=== PATIENT | female | born 1995 | race Caucasian/White ===

== ENCOUNTER 2021-11-26 20:49 | Inpatient (IN) ==
[2021-11-26] MEDS ORDERED: ONDANSETRON 4 MG/2 ML VIAL IV PRN (21:49)
[2021-11-26] MEDS ORDERED: BUTORPHANOL 2 MG/ML VIAL IV PRN (21:49)
[2021-11-26] MEDS ORDERED: MEPERIDINE 50 MG/1 ML VIAL IV PRN (21:49)
[2021-11-26] MEDS ORDERED: LACTATED RINGERS 1,000 ML IV SCH (22:00)
[2021-11-26 22:17] LABS: Basophils % 0.2 % (0.0-0.8); Eosinophils # 0.1 10*3/uL (0.0-0.87); Eosinophils % 1.5 % (0.00-10.9); Hematocrit 31.9 VOL% (35.7-47.0); Hemoglobin 10.1 GM/DL (12.0-16.0); Immature Granulocytes % 0.5 %; Immature Granulocytes Absolute 0.05 #; Lymphocytes # 2.1 10*3/uL (1.4-4.0); Lymphocytes % 23.3 % (21.3-54.2); Mean Corpuscular HGB Conc 31.7 GM/DL (32-36); Mean Corpuscular Volume 76.9 FL (87-102); Neutrophils % 66.5 % (38.7-73.9); Platelet Count 210 T/CUMM (130-400); Red Blood Count 4.15 MC/CUMM (3.8-5.5); Red Cell Distribution Width 15.6 % (9.3-17.3); White Blood Count 9.1 T/CUMM (4-12)
[2021-11-26 22:31] LABS: Alanine Aminotransferase 17 U/L (13-56); Albumin 2.4 G/DL (3.4-5.0); Alkaline Phosphatase 114 U/L (45-117); Aspartate Amino Transferase 18 U/L (0-37); Bilirubin,Total < 0.39 MG/DL (0.20-1.00); Blood Urea Nitrogen 10 MG/DL (7-18); Calcium 8.5 MG/DL (8.5-10.1); Carbon Dioxide 21 MMOL/L (21-32); Estimated Glom Filtration Rate 172 ML/MIN; Glucose 91 MG/DL (74-106); Osmolality,Calculated 273.7 MOS/KG (273-304); Potassium 3.5 MMOL/L (3.5-5.1); Sodium 138 MMOL/L (136-145); Total Protein 6.8 G/DL (6.4-8.2)
[2021-11-27] MEDS ORDERED: OXYTOCIN/LR 20 UNIT/1,000 ML BAG IV SCH (06:00)
[2021-11-27] MEDS: LEVOTHYROXINE 100 MCG TABLET PO SCH (06:05)
[2021-11-27] MEDS ORDERED: CITRIC ACID/SODIUM CITRATE 30 ML UDCUP PO ONE (07:24)
[2021-11-27] MEDS ORDERED: ePHEDrine 50 MG/ML VIAL IV PRN (07:24)
[2021-11-27] MEDS ORDERED: ONDANSETRON 4 MG/2 ML VIAL IV ONE (07:24)
[2021-11-27] MEDS ORDERED: NALOXONE 0.4 MG/ML VIAL IV PRN (07:24)
[2021-11-27] MEDS ORDERED: diphenhydrAMINE 50 MG/1 ML VIAL IV PRN ×2 (07:24)
[2021-11-27] MEDS ORDERED: PROMETHAZINE 25 MG/1 ML VIAL IM ONE (07:24)
[2021-11-27] MEDS ORDERED: hydrOXYzine HCL 25 MG/1 ML VIAL IM PRN (07:24)
[2021-11-27] MEDS ORDERED: FAMOTIDINE 20 MG/2 ML VIAL IV ONE (07:24)
[2021-11-27] MEDS ORDERED: fentaNYL 2 MCG/ROPIV 0.2% EPID 100 ML EPIDURAL SCH (07:30)
[2021-11-27] MEDS ORDERED: LACTATED RINGERS 1,000 ML IV SCH (07:30)
[2021-11-27] MEDS ORDERED: TRANEXAMIC ACID 1,000 MG/10 ML VIAL ONE (10:20)
[2021-11-27] MEDS ORDERED: miSOPROStoL 200 MCG TABLET ONE (10:20)
[2021-11-27] MEDS ORDERED: SODIUM CHLORIDE 0.9% 0 ML IV ONE (10:20)
[2021-11-27] MEDS ORDERED: CARBOPROST TROMETHAMINE 250 MCG/ML AMP IM ONE (10:21)
[2021-11-27] MEDS ORDERED: METHYLERGONOVINE 0.2 MG/1 ML AMP ONE (10:21)
[2021-11-27 11:31] LABS: Cord Venous Blood HCO3 22.1 MMOL/L; Cord Venous Blood PCO2 44.7 MMHG; Cord Venous Blood PO2 29.5
[2021-11-27] MEDS ORDERED: MEASLES/MUMPS/RUBELLA VACCINE 0.5 ML VIAL SUBCUT ONE (13:31)
[2021-11-27] MEDS ORDERED: DIPH/TET/ACEL PERT BOOSTER VACCINE 0.5 ML VIAL IM ONE (13:31)
[2021-11-27] MEDS ORDERED: BENZOCAINE 20%/MENTHOL 0.5% SPRAY 56 GM CAN TOP PRN (13:31)
[2021-11-27] MEDS ORDERED: LANOLIN 50% CREAM 0.3 OZ TUBE TOP PRN (13:31)
[2021-11-27] MEDS ORDERED: HYDROCORTISONE 2.5% RECTAL CREAM 30 GM TUBE TOP PRN (13:31)
[2021-11-27] MEDS ORDERED: ACETAMINOPHEN 325 MG TABLET PO PRN (13:31)
[2021-11-27] MEDS ORDERED: WITCH HAZEL PADS 100/JAR TOP PRN (13:31)
[2021-11-27] MEDS ORDERED: IBUPROFEN 800 MG TABLET PO PRN (13:31)
[2021-11-27] MEDS ORDERED: RHO(D) IMMUNE GLOBULIN 300 MCG SYRINGE IM ONE (13:31)
[2021-11-27] MEDS ORDERED: BISACODYL 10 MG SUPP RECTAL PRN (13:31)
[2021-11-27] MEDS ORDERED: ONDANSETRON 4 MG/2 ML VIAL IV PRN (13:31)
[2021-11-27] MEDS ORDERED: OXYTOCIN/LR 20 UNIT/1,000 ML BAG IV ONE (13:31)
[2021-11-27] MEDS ORDERED: oxyCODONE/ACETAMINOPHEN 5-325 MG TABLET PO PRN ×2 (13:31)
[2021-11-27] MEDS: DOCUSATE SODIUM 100 MG CAPSULE PO SCH (21:19)
[2021-11-28 05:45] LABS: Basophils % 0.3 % (0.0-0.8); Eosinophils # 0.2 10*3/uL (0.0-0.87); Eosinophils % 2.1 % (0.00-10.9); Hematocrit 32.3 VOL% (35.7-47.0); Hemoglobin 10.2 GM/DL (12.0-16.0); Immature Granulocytes % 0.5 %; Immature Granulocytes Absolute 0.05 #; Lymphocytes # 2.7 10*3/uL (1.4-4.0); Lymphocytes % 26.3 % (21.3-54.2); Mean Corpuscular HGB Conc 31.6 GM/DL (32-36); Mean Corpuscular Volume 77.6 FL (87-102); Mean Platelet Volume 9.9 FL (9.6-12.0); Monocytes % 8.2 % (1.7-12.7); Neutrophils % 62.6 % (38.7-73.9); Platelet Count 202 T/CUMM (130-400); Red Blood Count 4.16 MC/CUMM (3.8-5.5); Red Cell Distribution Width 15.7 % (9.3-17.3); White Blood Count 10.3 T/CUMM (4-12)
[2021-11-28] MEDS: LEVOTHYROXINE 100 MCG TABLET PO SCH (07:22)
[2021-11-28] MEDS: DOCUSATE SODIUM 100 MG CAPSULE PO SCH ×2 (09:22→21:51)
[2021-11-29] MEDS: LEVOTHYROXINE 100 MCG TABLET PO SCH (06:10)
[2021-11-29 08:35] VITALS: BP 131/59
[2021-11-29] MEDS: DOCUSATE SODIUM 100 MG CAPSULE PO SCH (08:58)
== END 2021-11-29 10:55 | disposition home or self-care (01) | DRG 807 ==
LOC: N.LD 20:49 → N.OB 11-27 13:19
PROVIDERS: ADMIT Specialist; ATTEND Specialist